=== PATIENT | female | born 1995 | race Caucasian/White ===

== ENCOUNTER 2021-01-11 19:33 | Emergency (ER) | payer OTHER, SELFPAY ==
[2021-01-11 19:40] VITALS: BP 148/89; BP 154/102; PULSE 100; PULSE 105; RESP 18; O2SAT 99; BMI 31.4
--- NOTE | 2021-01-11 21:35 | ECG_ITS ---
Test Reason : INGESTION Blood Pressure : / mmHG Vent. Rate : 090 BPM Atrial Rate : 090 BPM P-R Int : 122 ms QRS Dur : 098 ms QT Int : 390 ms P-R-T Axes : 049 035 029 degrees QTc Int : 477 ms Normal sinus rhythm Normal ECG When compared with ECG of 21-MAY-2018 00:46, No significant change was found Referred By: Carter Barnett Electronically Signed By:EBENEZER JONES MD
--- NOTE | 2021-01-11 21:36 | ED_ITS ---
HPI - Overdose General Chief Complaint: Overdose Stated Complaint: OD Time Seen by Provider: 01/11/21 20:21 Source: patient Mode of arrival: EMS Limitations: no limitations History of Present Illness HPI Narrative: Patient has history of depression with history of overdose in the past was depressed today got upset as her boyfriend recently cheated and had family issues took about 20 tablets of generic question or Unisom at around 17:00 denies any complaint at this time except feeling little tired and sleepy of the abdominal pain no nausea no vomiting denies any suicidal ideation at this time but feel depressed does not have any therapist to talk does not take any medication for depression complaint: intentional overdose Onset (ago): hour(s) Related Data Allergies Allergy/AdvReac Type Severity Reaction Status Date / Time Penicillins [PENICILLINS] AdvReac Unknown UNKNOWN Unverified 06/29/20 19:11 SUPREX Allergy Unknown HIVES Uncoded 06/29/20 19:11 Review of Systems Review of Systems: Constitutional : No Fever, No Chills ENT/Mouth : No Ear Pain, No Nasal Congestion, No sore throat Eyes: No Eye Pain, No Swelling, No Redness Cardiovascular : No Chest Pain, No SOB Respiratory : No Cough, No Sputum, No Dyspnea Gastrointestinal : No Nausea, No Vomiting, No Diarrhea, No Hematochezia, No Melena Genitourinary : No Dysuria, No Urinary Frequency, No Hematuria Musculoskeletal : No Myalgias Skin : No Skin Lesions, No rash Neuro : No Weakness, No Numbness, No Paresthesias, No Dizziness, No Headache Psych : positive Anxiety, positive Depression, positive SI Heme/Lymph: No Lymphadenopathy Endocrine : No Polyuria, No Polydipsia All other systems reviewed and are negative PMFSH Past Medical History Medical History Anxiety Depression PTSD (post-traumatic stress disorder) Raynauds disease Social History Social History Alcohol intake: never Smoking Status: Never smoker Use of substances other than those prescribed or required for medical reasons: No Advance Directives: No Advance Directives Information Provided: No Physical Exam Vital Signs: Vital Signs: Last Vital Signs Temp 98.7 F 01/12/21 00:56 Pulse 64 01/12/21 00:56 Resp 16 01/12/21 00:56 BP 134/79 01/12/21 00:56 Pulse Ox 98 01/12/21 00:56 Body Mass Index 31.4 Appearance: Alert. Oriented X3. No acute distress. Eyes: Pupils equal, round and reactive to light. ENT: Pharynx normal. Neck: Normal inspection. Neck supple. CVS: Normal heart rate and rhythm. Pulses normal. Respiratory: No respiratory distress. Breath sounds normal. Abdomen: Soft and nontender. Bowel sounds are present, no mass palpable, no CVA tenderness Skin: Skin warm and dry. Normal skin color. Normal skin turgor. Extremities: No lower extremity edema. Neuro: Oriented X 3. No motor deficit. No sensory deficit. Psych: Depressed mood denies any hallucination or delusions no current suicidal thoughts judgment is fair MDM - Overdose MDM Narrative Medical decision making narrative: Patient with depression intentional overdose with nontoxic dose of Unisom. Seen by therapist Section 12 was placed and will look for inpatient psych admission Differential Diagnosis Differential diagnosis: Likely drug overdose Medical Records Attestation: I reviewed the patient's medical records. Lab Data Attestation: I reviewed the patient's lab results. Result diagrams: 01/11/21 22:10 01/11/21 22:10 Labs: Lab Results 01/11/21 01/11/21 01/11/21 Range/Units 22:10 22:10 22:10 WBC 8.9 (4.8-10.8) X10*3/uL RBC 4.45 (4.20-5.50) X10*6/uL Hgb 13.5 (12.0-16.0) g/dl Hct 41.6 (37-47) % MCV 93.5 (80-98) fL MCH 30.3 (27.0-33.0) pg MCHC 32.5 (31.0-35.0) g/dl RDW 13.0 (11.0-16.0) % Plt Count 301 (160-400) X10*3/uL MPV 10.0 (9.4-12.3) fL Immature Gran % (Auto) 0.2 (0.0-0.4) % Neut % (Auto) 73.1 H (45-73) % Lymph % (Auto) 20.9 (20-40) % [place] % (Auto) 4.5 (2-11) % Eos % (Auto) 0.8 (0-4) % Baso % (Auto) 0.5 (0-2) % Lymph # (Auto) 1.9 (1.2-4.9) X10*3/uL [place] # (Auto) 0.4 (0.1-1.2) X10*3/uL Eos # (Auto) 0.1 (0.0-0.4) X10*3/uL Baso # (Auto) 0.0 (0.0-0.2) X10*3/uL Abs Immat Gran (auto) 0.02 (0.00-0.03) X10*3/uL Absolute Neuts (auto) 6.5 (2.0-8.3) X10*3/uL Absolute Nucleated RBC 0.000 (0.0-0.012) X10*3/uL Nucleated RBC % (auto) 0.0 (0.0-0.2) /100WBC Sodium 144 (135-145) mmol/L Potassium 3.7 (3.3-5.1) mmol/L Chloride 105 (96-108) mmol/L Carbon Dioxide 28 (22-29) mmol/L Anion Gap 15 (12-20) BUN 12 (9-16) mg/dL Creatinine 1.19 (0.5-1.4) mg/dL Estim Creat Clear Calc 90.1 Estimated GFR 56 Random Glucose 75 (60-115) mg/dL Calcium 9.7 (8.4-10.2) mg/dL Total Bilirubin 0.4 (0.0-1.0) mg/dL AST 19 (5-31) U/L ALT 25 (0-31) U/L Alkaline Phosphatase 56 (39-117) U/L Total Protein 8.7 H (6.5-8.0) g/dL Albumin 4.9 (3.5-5.0) g/dL Urine Color Urine Appearance Urine pH (5.0-8.0) Ur Specific [place] (1.005-1.025) Urine Protein (NEG-TRACE) MG/DL Urine Glucose (UA) (NEG) MG/DL Urine Ketones (NEG) MG/DL Urine Blood (NEG) Urine Nitrite (NEG) Ur Leukocyte Esterase (NEG) Urine Test (NEGATIVE) Salicylates < 5.0 L (15-30) mg/dL Urine Opiates Screen Not Detected (Not Detect) Acetaminophen < 1 (<30) mcg/mL Ur Barbiturates Screen Not Detected (Not Detect) Ur Phencyclidine Scrn Not Detected (Not Detect) Ur Amphetamines Screen Not Detected (Not Detect) U Benzodiazepines Scrn Not Detected (Not Detect) Urine Cocaine Screen Not Detected (Not Detect) U Marijuana (THC) Screen POSITIVE H (Not Detect) Ethyl Alcohol mg/dL COVID-19 (SILVIO) (Negative) COVID-19 Clin Com 01/11/21 01/11/21 01/11/21 Range/Units 22:10 22:10 22:51 WBC (4.8-10.8) X10*3/uL RBC (4.20-5.50) X10*6/uL Hgb (12.0-16.0) g/dl Hct (37-47) % MCV (80-98) fL MCH (27.0-33.0) pg MCHC (31.0-35.0) g/dl RDW (11.0-16.0) % Plt Count (160-400) X10*3/uL MPV (9.4-12.3) fL Immature Gran % (Auto) (0.0-0.4) % Neut % (Auto) (45-73) % Lymph % (Auto) (20-40) % [place] % (Auto) (2-11) % Eos % (Auto) (0-4) % Baso % (Auto) (0-2) % Lymph # (Auto) (1.2-4.9) X10*3/uL [place] # (Auto) (0.1-1.2) X10*3/uL Eos # (Auto) (0.0-0.4) X10*3/uL Baso # (Auto) (0.0-0.2) X10*3/uL Abs Immat Gran (auto) (0.00-0.03) X10*3/uL Absolute Neuts (auto) (2.0-8.3) X10*3/uL Absolute Nucleated RBC (0.0-0.012) X10*3/uL Nucleated RBC % (auto) (0.0-0.2) /100WBC Sodium (135-145) mmol/L Potassium (3.3-5.1) mmol/L Chloride (96-108) mmol/L Carbon Dioxide (22-29) mmol/L Anion Gap (12-20) BUN (9-16) mg/dL Creatinine (0.5-1.4) mg/dL Estim Creat Clear Calc Estimated GFR Random Glucose (60-115) mg/dL Calcium (8.4-10.2) mg/dL Total Bilirubin (0.0-1.0) mg/dL AST (5-31) U/L ALT (0-31) U/L Alkaline Phosphatase (39-117) U/L Total Protein (6.5-8.0) g/dL Albumin (3.5-5.0) g/dL Urine Color Urine Appearance Urine pH (5.0-8.0) Ur Specific [place] (1.005-1.025) Urine Protein (NEG-TRACE) MG/DL Urine Glucose (UA) (NEG) MG/DL Urine Ketones (NEG) MG/DL Urine Blood (NEG) Urine Nitrite (NEG) Ur Leukocyte Esterase (NEG) Urine Test NEGATIVE (NEGATIVE) Salicylates (15-30) mg/dL Urine Opiates Screen (Not Detect) Acetaminophen (<30) mcg/mL Ur Barbiturates Screen (Not Detect) Ur Phencyclidine Scrn (Not Detect) Ur Amphetamines Screen (Not Detect) U Benzodiazepines Scrn (Not Detect) Urine Cocaine Screen (Not Detect) U Marijuana (THC) Screen (Not Detect) Ethyl Alcohol < 10 mg/dL COVID-19 (SILVIO) Negative (Negative) COVID-19 Clin Com See Note 01/12/21 Range/Units 22:10 WBC (4.8-10.8) X10*3/uL RBC (4.20-5.50) X10*6/uL Hgb (12.0-16.0) g/dl Hct (37-47) % MCV (80-98) fL MCH (27.0-33.0) pg MCHC (31.0-35.0) g/dl RDW (11.0-16.0) % Plt Count (160-400) X10*3/uL MPV (9.4-12.3) fL Immature Gran % (Auto) (0.0-0.4) % Neut % (Auto) (45-73) % Lymph % (Auto) (20-40) % [place] % (Auto) (2-11) % Eos % (Auto) (0-4) % Baso % (Auto) (0-2) % Lymph # (Auto) (1.2-4.9) X10*3/uL [place] # (Auto) (0.1-1.2) X10*3/uL Eos # (Auto) (0.0-0.4) X10*3/uL Baso # (Auto) (0.0-0.2) X10*3/uL Abs Immat Gran (auto) (0.00-0.03) X10*3/uL Absolute Neuts (auto) (2.0-8.3) X10*3/uL Absolute Nucleated RBC (0.0-0.012) X10*3/uL Nucleated RBC % (auto) (0.0-0.2) /100WBC Sodium (135-145) mmol/L Potassium (3.3-5.1) mmol/L Chloride (96-108) mmol/L Carbon Dioxide (22-29) mmol/L Anion Gap (12-20) BUN (9-16) mg/dL Creatinine (0.5-1.4) mg/dL Estim Creat Clear Calc Estimated GFR Random Glucose (60-115) mg/dL Calcium (8.4-10.2) mg/dL Total Bilirubin (0.0-1.0) mg/dL AST (5-31) U/L ALT (0-31) U/L Alkaline Phosphatase (39-117) U/L Total Protein (6.5-8.0) g/dL Albumin (3.5-5.0) g/dL Urine Color YELLOW Urine Appearance CLEAR Urine pH 7.5 (5.0-8.0) Ur Specific [place] 1.020 (1.005-1.025) Urine Protein NEG (NEG-TRACE) MG/DL Urine Glucose (UA) NEG (NEG) MG/DL Urine Ketones NEG (NEG) MG/DL Urine Blood NEG (NEG) Urine Nitrite NEG (NEG) Ur Leukocyte Esterase NEG (NEG) Urine Test (NEGATIVE) Salicylates (15-30) mg/dL Urine Opiates Screen (Not Detect) Acetaminophen (<30) mcg/mL Ur Barbiturates Screen (Not Detect) Ur Phencyclidine Scrn (Not Detect) Ur Amphetamines Screen (Not Detect) U Benzodiazepines Scrn (Not Detect) Urine Cocaine Screen (Not Detect) U Marijuana (THC) Screen (Not Detect) Ethyl Alcohol mg/dL COVID-19 (SILVIO) (Negative) COVID-19 Clin Com ECG Data Attestation: I personally reviewed and interpreted this ECG as follows: Interpretation: Normal sinus rhythm heart rate 90 beats per minute normal intervals normal axis no acute ST T wave changes impression normal EKG
[2021-01-11 22:00] VITALS: BP 149/93; PULSE 83; RESP 16; O2SAT 98
[2021-01-11 22:18] LABS: MANUAL DIFF FLAG NO
[2021-01-11 22:27] LABS: Basophils Percent Auto 0.5 % (0-2); Eosinophils Absolute Auto 0.1 X10*3/uL (0.0-0.4); Eosinophils Percent Auto 0.8 % (0-4); Hematocrit 41.6 % (37-47); Hemoglobin 13.5 g/dl (12.0-16.0); Imm Gran Abs Auto 0.02 X10*3/uL (0.00-0.03); Imm Gran Pct Auto 0.2 % (0.0-0.4); Lymphocytes Absolute Auto 1.9 X10*3/uL (1.2-4.9); Lymphocytes Percent Auto 20.9 % (20-40); Mean Corpuscular HGB Conc 32.5 g/dl (31.0-35.0); Mean Corpuscular Hemoglobin 30.3 pg (27.0-33.0); Mean Corpuscular Volume 93.5 fL (80-98); Monocytes Absolute Auto 0.4 X10*3/uL (0.1-1.2); Monocytes Percent Auto 4.5 % (2-11); Neutrophils Absolute Auto 6.5 X10*3/uL (2.0-8.3); Neutrophils Percent Auto 73.1 % (45-73); Platelet Count 301 X10*3/uL (160-400); Red Blood Count 4.45 X10*6/uL (4.20-5.50); White Blood Count 8.9 X10*3/uL (4.8-10.8)
[2021-01-11 22:51] LABS: Acetaminophen LAB < 1 mcg/mL (<30); Alanine Aminotransferase 25 U/L (0-31); Albumin Level 4.9 g/dL (3.5-5.0); Alkaline Phosphatase 56 U/L (39-117); Anion Gap 15 (12-20); Aspartate Amino Transferase 19 U/L (5-31); Bilirubin Total 0.4 mg/dL (0.0-1.0); Blood Urea Nitrogen 12 mg/dL (9-16); Calcium 9.7 mg/dL (8.4-10.2); Carbon Dioxide 28 mmol/L (22-29); Chloride 105 mmol/L (96-108); Creatinine Clr Calc Pharmacy 90.1; Estimated Glomerular Filt Rate 56; Ethanol < 10 mg/dL; Glucose Random 75 mg/dL (60-115); Potassium 3.7 mmol/L (3.3-5.1); Salicylate < 5.0 mg/dL (15-30); Sodium 144 mmol/L (135-145); Total Protein 8.7 g/dL (6.5-8.0)
[2021-01-11 22:52] LABS: Amphetamine Screen Urine Not Detected (Not Detect); Benzodiazepines Screen Urine Not Detected (Not Detect); Cannabinoid Screen Urine POSITIVE (Not Detect); Opiate Screen Urine Not Detected (Not Detect); Phencyclidine Screen Urine Not Detected (Not Detect)
[2021-01-11 22:54] LABS: Barbiturates, Urine Not Detected (Not Detect); Cocaine Screen Urine Not Detected (Not Detect)
[2021-01-11 23:31] LABS: COVID-19 Test Negative (Negative); IDNOW Serial# 9DD0AD1C
--- NOTE | 2021-01-11 23:52 | PC.NURSE ---
REPORT TAKEN FROM GONZÁLEZ RN, FIRST CONTACT WITH PT. A&Ox3, SKIN PWD RESPIRATIONS EVEN UNLABORED. AWAITING CARE TEAM EVAL. AWARE OF PLAN OF CARE. PO AT BEDSIDE FOR SAFETY.
[2021-01-12] VITALS (10 sets, daily range): BP systolic 111–136; BP diastolic 53–85; PULSE 64–69; RESP 14–20; TEMP 36–37.1; O2SAT 97–98
--- NOTE | 2021-01-12 00:09 | PC.NURSE ---
Patient just got transferred from main ED, ambulated w/o gait deficit, care team with patient at this time, will continue to monitor.
[2021-01-12 00:28] LABS: Glucose Urine UA NEG (NEG); Leukocyte Esterase Urine NEG (NEG); Nitrite Urine NEG (NEG); PH 7.5 (5.0-8.0); Urine Blood NEG (NEG); Urine Ketones NEG (NEG); Urine Protein NEG (NEG-TRACE)
[2021-01-12 00:32] LABS: Appearance Urine CLEAR; Color Urine YELLOW
[2021-01-12 00:36] LABS: UPreg QC Valid YES; Urine Pregnancy NEGATIVE (NEGATIVE)
--- NOTE | 2021-01-12 02:31 | MHC.CARE ---
CARE Team obtains prior auth for IPLOC from [facility] [phone]: Sharri 4 days review 01/12-01/15 #[id number], call back w/ bed 3rd democrat tableau administrator [facility] BPO [phone], call to verify coverage once a bed is found
--- NOTE | 2021-01-12 07:14 | PC.NURSE ---
Report received from SILVERIO Lewis. Pt resting, resp unlabored.
--- NOTE | 2021-01-12 09:33 | PC.NURSE ---
Pt resting, resp unlabored
--- NOTE | 2021-01-12 10:53 | PC.NURSE ---
Pt resting, easily awakened but drowsy. No concerns reported.
--- NOTE | 2021-01-12 11:19 | PC.NURSE ---
Pt awake, alert. Affect even. Reports some residual arm soreness from previous injury but denies any other concerns. Pt aware that she is waiting on inpatient bed.
--- NOTE | 2021-01-12 13:22 | PC.NURSE ---
Pt out in common area reading. Pt calm, pleasant.
--- NOTE | 2021-01-12 16:31 | PC.NURSE ---
Pt resting, resp unlabored.
--- NOTE | 2021-01-12 18:13 | PC.NURSE ---
Pt resting, easily awakened - denies any concerns at this time.
--- NOTE | 2021-01-12 19:09 | PC.NURSE ---
Report received. PT is sleeping in bed. Respirations even and unlabored. PT is inpatient bed search.
[2021-01-12] MEDS: Acetaminophen 325 MG TABLET 650 MG PO (23:43)
[2021-01-13 01:20] VITALS: BP 121/69; PULSE 64; RESP 17; TEMP 36.6; O2SAT 99
[2021-01-13] MEDS: LORazepam 1 MG TABLET PO (01:51)
--- NOTE | 2021-01-13 07:05 | PC.NURSE ---
Report received. PT currently sleeping, respirations even and unlabored, in no apparent distress. PT is inpatient bedsearch.
[2021-01-13 09:10] VITALS: BP 113/72; PULSE 54; RESP 18; TEMP 37.1; O2SAT 97
--- NOTE | 2021-01-13 15:33 | PC.NURSE ---
Meenakshi SAWYER from [facility] in [place] called for nurse to nurse. Stated they would accept PT for 0 admission.
--- NOTE | 2021-01-13 16:01 | MHC.CARE ---
[phone] - Pt has been accepted to the [facility] for a 1930 arrival time. Nurse to Nurse done. Unable to secure authorization from third republican general administrator([facility] BPO [phone]). I have been repeatedly kicked back to the main menu and have had to restart the process several times. I was able to verify coverage but was unable to speak with a person. Contacted intake at the above facility and provided them with the authorization obtained by Ms. Preston yesterday, per her note: CARE Team obtains prior auth for IPLOC from [facility] [phone]: Sharri 4 days review 01/12-01/15 #[id number], call back w/ bed The above facility would not accept the above authorization number as it was Not for this facility . I was able to secure a copy of the medical card (Not in file) which was found in pt belongings. The number on the card was the same as I have been calling. Another round of attempts were made using the same number but with no results. Called Raul, was unable to speak with a person, after a series of recorded messages I was directed to contact the third republican general administrator at the number I have already called several times.
[2021-01-13 16:15] VITALS: PULSE 96; RESP 18
--- NOTE | 2021-01-13 16:15 | PC.NURSE ---
C/o racing heart and increasing anxiety, P 142 standing, P 96 sitting, no c/o dizziness. Provider, Rachel, notified, ativan x1 now ordered. Medication offered to pt, declined, No, it knocked me out last night, I want to know why I keep feeling like this . Educated on physical symptoms of anxiety. Pt continues to decline ativan.
[2021-01-13 17:58] VITALS: BP 98/78; PULSE 82; RESP 20; TEMP 36.4; O2SAT 100
--- NOTE | 2021-01-13 19:03 | MHC.RECOVSUP ---
recovery support o Current location: #1 o Identified substance use concern:Cannabis <del>-</del> <del>Overdose</del> <del>-</del> <del>Withdrawal</del> <del>-</del> <del>Seeking</del> <del>ATS</del> <del>(detox)</del> - Support ? Intervention: <del>o</del> <del>ATS</del> <del>bed</del> <del>search</del> <del>started/completed/in</del> <del>process</del> <del>o</del> <del>MAT</del> <del>started</del> <del>or</del> <del>to</del> <del>be</del> <del>started</del> o Community resources provided <del>o</del> <del>Harm</del> <del>reduction</del> <del>discussion</del> ? Plan: <del>o</del> <del>Referral</del> <del>to</del> <del>[facility]</del> <del>o</del> <del>Bed</del> <del>search</del> <del>in</del> <del>progress</del> <del>to</del> <del>o</del> <del>Follow</del> <del>up</del> <del>tomorrow</del> o Patient awaiting crisis evaluation <del>o</del> <del>Patient</del> <del>to</del> <del>follow</del> <del>up</del> <del>with</del> <del>[facility]</del> <del>after</del> <del>discharge</del> ? Additional information:I was able to speak with pt and she stated that she has never had an opioid use problem. pt is not on MAT. pt also stated that she was living with her partner. she did state taking some medication and it was due to some problems with her partner. I shared with pt that if she would like to speak with me later on to just ask the nurse for the cricket coach. This note pertains to yesterday 01/12/2021
--- NOTE | 2021-01-13 19:46 | PC.NURSE ---
Report received. PT is coloring on the floor in the common area behind the nurse's station. PT is calm and cooperative. PT asked to connect her phone to the unit's patient headphones so she could listen to music. This nurse retrieved the PT's phone from her locker and connected it to the headphones. PT is waiting to be transferred to inpatient facility tomorrow.
--- NOTE | 2021-01-13 19:58 | MHC.CARE ---
CARE team contacted by senior marketing coordinator at [facility] re: pt who was tentatively accepted for admission to facility pending finalized authorization approval. CARE team had been unsuccessful in contacting Raul earlier in the day. This screen writer contacted [facility] [phone] and spoke with Shaniqua Maya re: pt being accepted for admission and receiving the new authorization number.?Received call back from Jaye Ruiz to complete authorization. 3 days starting 01/14/21 last cover day 01/16/21 #[id number] Called [facility] to reschedule admission for Friday01/14/21 at 9:30AM, ambulance for transport will be scheduled after midnight this evening.
--- NOTE | 2021-01-13 23:31 | MHC.CARE ---
This editorial writer met with pt to check in and discuss the plan for her to be transported to [facility] for admission in the morning. Pt was hostile toward this editorial writer, insisting that she will sign out AMA rather than be admitted, and when told that isn't an option in this situation given the severity of her initial presentation and symptoms pt glared at this editorial writer with increasing intensity. Pt denied the overdose as being intentional, stating that she just wanted to sleep, and citing her regular use of upwards of 10 melatonin gummies to aid with sleep. Pt's initial assessment and MSU were reviewed and this editorial writer consulted with aviation safety officer psychiatrist and ED physician re: grounds for an involuntary admission. Per pt's evaluation, pt contacted the National Suicide Prevention Hotline after the intentional overdose who then called EMS to have pt transported to ED for medical attention and evaluation. Pt has no natural supports or behavioral health support, lives alone, and has also been experiencing hallucinations which appear to be inducing paranoia. pod nurse reported to this editorial writer that pt was speaking with him about hearing the voices of different personalities in her head. [facility] was contacted, who reported that if pt is not voluntary for admission once she arrives that their psychiatrist will sign the 12b. A new 12a for transport will be completed with ED attending physician and placed in pt's chart. This editorial writer re-approached pt re: her denial that the overdose was suicidal in nature, and was again met with a hostile glare. Pt was angry and tearful, stating that she refuses to go and that an inpatient psych admission will not be helpful for her and that she will refuse all treatment during admission. Pt was encouraged to participate in her treatment during admission so the admission can be helpful. Pt dismissed this editorial writer and put the pod headphones on.
[2021-01-14 06:00] VITALS: BP 109/71; PULSE 81; RESP 18; TEMP 35.9; O2SAT 97
--- NOTE | 2021-01-14 07:49 | PC.NURSE ---
Report received from Rito SAWYER. Plan for transfer to [facility]
== END 2021-01-14 09:30 ==
PROVIDERS: Emergency Provider Internal Medicine
DX: R53.83 Other fatigue (principal); T45.0X2A Poisoning by antiallergic and antiemetic drugs, intentional self-harm, initial encounter; Y92.9 Unspecified place or not applicable; F32.9 Major depressive disorder, single episode, unspecified; Z20.822 Contact with and (suspected) exposure to COVID-19; R44.0 Auditory hallucinations; F43.10 Post-traumatic stress disorder, unspecified; F41.9 Anxiety disorder, unspecified; F12.90 Cannabis use, unspecified, uncomplicated
CPT/HCPCS: 36415; 80053; 80143; 80179; 80307; 80320; 81003; 81025; 85025; 87635; 93005; 99285